=== PATIENT | male | born 1970 | race Hispanic/Latino ===

== ENCOUNTER 2019-10-10 07:36 | Day surgery (SDC) | payer OTHER, MEDICARE ==
[~2019-10-10] VITALS: Ht 182.9 cm; Wt 133.8 kg
[~2019-10-10 07:36] MED LIST: AMLO10TA7 PO; ASPI-556 PO; ATOR10TA69 PO; AURYXIA PO; CINA30TA5 PO; DOXA2TAB2 PO; FAMO20TA8 PO; LISI10TA7 PO; METO-391 PO; OMEG-167 PO; PATI16.8 PO; SEVE800T27 PO; SODIUM CHLORIDE 0.9% 1000ML 1,000 ML IV ONE
[2019-10-10 08:34] VITALS: BP 87/45
[2019-10-10 08:56] LABS: POTASSIUM 4.3 mmol/L (3.5-5.1)
--- NOTE | 2019-10-10 09:01 | NUR ---
SPOKE TO LORETO ALTAMIRANO CRNA ABOUT PT BP OF 81/46 AND RECHECK OF 87/45 , I ALSO MENTIONED TO HIM THAT PATIENT TOOK THREE BP MEDS LAST NIGHT AND ALSO PT REPORTED LOW BP IN DIALYSIS YESTERDAY. NO ORDERS AT THIS MOMENT.
[2019-10-10 09:10] LABS: CREATININE 9.9 mg/dL (0.5-1.5)
[2019-10-10] MEDS ORDERED: PROPOFOL 10 MG/ML 20ML VIAL IV ONE ×2 (09:18→09:39)
[2019-10-10] MEDS ORDERED: SODIUM CHLORIDE 0.9% 10 ML VIAL ONE (09:18)
[2019-10-10] MEDS ORDERED: PHENYLEPHRINE HCL 10 MG/ML 1ML VIAL IV ONE (09:19)
[2019-10-10 09:45] VITALS: BP 76/56
[2019-10-10 09:49] VITALS: BP 97/35
[2019-10-10 09:54] VITALS: BP 93/55
[2019-10-10 09:59] VITALS: BP 104/55
== END 2019-10-10 10:28 | disposition home or self-care (01) ==
LOC: DAH 07:36 → ENDO 07:36
PROVIDERS: ATTEND Internal Medicine
DX: K59.04 Chronic idiopathic constipation (principal); Z11.59 Encounter for screening for other viral diseases; D12.2 Benign neoplasm of ascending colon; D12.8 Benign neoplasm of rectum; K57.30 Diverticulosis of large intestine without perforation or abscess without bleeding; K64.0 First degree hemorrhoids; I12.0 Hypertensive chronic kidney disease with stage 5 chronic kidney disease or end stage renal disease; E11.22 Type 2 diabetes mellitus with diabetic chronic kidney disease; N18.6 End stage renal disease; F17.210 Nicotine dependence, cigarettes, uncomplicated; E03.9 Hypothyroidism, unspecified; E66.9 Obesity, unspecified; Z68.41 Body mass index [BMI] 40.0-44.9, adult; Z79.82 Long term (current) use of aspirin; Z79.899 Other long term (current) drug therapy; Z90.49 Acquired absence of other specified parts of digestive tract; Z98.890 Other specified postprocedural states; Z72.89 Other problems related to lifestyle; Z82.49 Family history of ischemic heart disease and other diseases of the circulatory system; Z83.3 Family history of diabetes mellitus
CPT/HCPCS: 36415 ×2; 45380; 45385; 80048; 87635; A4215; A4221; A4222; A4223; A4606; A4620; A4663; J2370; J2704 ×2; J7030; 43200

== ENCOUNTER 2021-06-18 06:43 | Observation (INO) | payer OTHER, MEDICARE ==
[2021-06-18] VITALS (40 sets, daily range): BP systolic 91–146; BP diastolic 45–100
[~2021-06-18] VITALS: Ht 182.9 cm; Wt 142.2 kg
[~2021-06-18 06:43] MED LIST changes: +AMLO-258 PO; -AMLO10TA7 PO; +LISI10TA24 PO; -LISI10TA7 PO; -SODIUM CHLORIDE 0.9% 1000ML 1,000 ML IV ONE
[2021-06-18] MEDS ORDERED: 0.9%NACL 1000ML 1,000 ML IV ONE (07:31)
[2021-06-18 07:32] LABS: BASOPHILS % (AUTO) 0.6 % (0.0-5.0); EOSINOPHILS % (AUTO) 0.9 % (0.0-8.0); HEMATOCRIT 34.4 % (42-54); LYMPHOCYTES % (AUTO) 16.3 % (21.0-51.0); MEAN CORPUSCULAR HGB CONC 31.4 g/dL (32.0-36.0); MEAN CORPUSCULAR VOLUME 102.1 fL (79-99); MONOCYTES % (AUTO) 9.2 % (3.0-13.0); NEUTROPHILS % (AUTO) 72.5 % (40.0-77.0); PLATELET COUNT (AUTO) 121 K/uL (130-400); RED BLOOD CELL COUNT(AUTO) 3.37 MIL/uL (4.50-6.20); RED CELL DISTRIBUTION WIDTH 14.6 % (11.0-15.5); WHITE BLOOD COUNT (AUTO) 7.9 K/uL (4.8-10.8)
[2021-06-18] MEDS ORDERED: LIDOCAINE HCL 2% VISCOUS 15 ML UDCUP ONE (07:32)
[2021-06-18] MEDS ORDERED: FENTANYL CITRATE PF 50 MCG/1 ML 2ML VIAL ONE (07:33)
[2021-06-18] MEDS ORDERED: MIDAZOLAM HCL 1 MG/ML 2ML VIAL ONE ×2 (07:33→12:00)
[2021-06-18 07:42] LABS: POTASSIUM 5.8 mmol/L (3.5-5.1)
[2021-06-18 07:43] LABS: INR 1.15 (0.85-1.15); PROTHROMBIN TIME 12.4 SEC (9.6-11.6)
[2021-06-18 07:44] LABS: PARTIAL THROMBOPLASTIN TIME 30.3 SEC (26.3-35.5)
[2021-06-18 07:45] LABS: CREATININE 11.4 mg/dL (0.5-1.5)
[2021-06-18] MEDS ORDERED: APIX5TAB PO (07:56)
[2021-06-18] MEDS ORDERED: CILO100T PO (07:56)
[2021-06-18] MEDS ORDERED: IBUP200C5 PO (07:56)
[2021-06-18] MEDS ORDERED: DOCU100T PO (07:56)
[2021-06-18] MEDS ORDERED: MEPERIDINE-PF 25 MG/ML SYG ONE (12:00)
[2021-06-18] MEDS ORDERED: HEPARIN 10,000 UNIT/10ML (1,000 UNIT/ML) VIAL ONE (12:00)
[2021-06-18] MEDS ORDERED: LIDOCAINE HCL 400MG/20ML VIAL ONE (12:01)
[2021-06-18] MEDS: SEVELAMER HCL 800 MG TABLET PO SCH (16:56)
[2021-06-18] MEDS: CILOSTAZOL 100 MG TAB PO SCH (20:51)
[2021-06-18] MEDS: APIXABAN 5 MG TABLET PO SCH (20:51)
[2021-06-18] MEDS ORDERED: METOPROLOL SUCCINATE 50 MG TAB.SR.24H PO SCH (21:00)
[2021-06-18] MEDS ORDERED: DOCUSATE SODIUM 100 MG CAP PO SCH (21:00)
[2021-06-18] MEDS ORDERED: DOXAZOSIN MESYLATE 2 MG TABLET PO SCH (21:00)
[2021-06-18] MEDS ORDERED: LISINOPRIL 10 MG TABLET PO SCH (21:00)
[2021-06-18] MEDS: AURYXIA 210 MG PO SCH (21:00)
[2021-06-18] MEDS: CINACALCET 30 MG TAB PO SCH (21:00)
[2021-06-18] MEDS ORDERED: ATORVASTATIN 10 MG TABLET PO SCH (21:00)
[2021-06-18] MEDS ORDERED: FAMOTIDINE 20MG TAB PO SCH (21:00)
[2021-06-19 00:32] VITALS: BP 133/89
[2021-06-19 04:18] LABS: POTASSIUM 4.5 mmol/L (3.5-5.1)
[2021-06-19 04:29] VITALS: BP 125/72
[2021-06-19 04:51] LABS: CREATININE 10.2 mg/dL (0.5-1.5)
[2021-06-19] MEDS: APIXABAN 5 MG TABLET PO SCH (07:21)
[2021-06-19] MEDS: SEVELAMER HCL 800 MG TABLET PO SCH ×2 (07:21→12:10)
[2021-06-19] MEDS: CILOSTAZOL 100 MG TAB PO SCH (07:22)
[2021-06-19] MEDS: AURYXIA 210 MG PO SCH ×2 (07:22→13:24)
[2021-06-19 08:07] VITALS: BP 119/73
[2021-06-19] MEDS: CINACALCET 30 MG TAB PO SCH (08:27)
[2021-06-19 12:00] VITALS: BP 122/62
== END 2021-06-19 15:05 | disposition home or self-care (01) ==
LOC: CLH 06:43 → DAH 06:43 → 2DH 06:44 → CLH 06:44
PROVIDERS: ADMIT Internal Medicine; ATTEND Internal Medicine
DX: I48.92 Unspecified atrial flutter (principal); I48.3 Typical atrial flutter; I25.10 Atherosclerotic heart disease of native coronary artery without angina pectoris; I12.0 Hypertensive chronic kidney disease with stage 5 chronic kidney disease or end stage renal disease; N18.6 End stage renal disease; E11.22 Type 2 diabetes mellitus with diabetic chronic kidney disease; J44.9 Chronic obstructive pulmonary disease, unspecified; E78.5 Hyperlipidemia, unspecified; E87.5 Hyperkalemia; E87.70 Fluid overload, unspecified; I34.0 Nonrheumatic mitral (valve) insufficiency; D64.9 Anemia, unspecified; D69.6 Thrombocytopenia, unspecified; Z99.2 Dependence on renal dialysis; Z79.899 Other long term (current) drug therapy; Z98.890 Other specified postprocedural states; Z79.82 Long term (current) use of aspirin
CPT/HCPCS: 36415 ×2; 80048 ×2; 85025; 85610; 85730; 93005; 93313; 93653; A4215; A4216; A4221; A4222; A4223 ×3; A4606; A4649 ×2; A4663; C1730; C1732; C1894 ×2; G0378 ×24; J1644 ×2; J2175; J2250 ×2; J3010; J3490; J7030; 90935; 99152; 99153; 99156; 99157

== ENCOUNTER 2023-03-24 08:51 | Observation (INO) | payer OTHER, MEDICARE ==
[2023-03-24] VITALS (19 sets, daily range): BP systolic 102–129; BP diastolic 54–87; PULSE 51–72; RESP 16–18; TEMP 98.2–98.8; O2SAT 98–99
[~2023-03-24] VITALS: Ht 182.9 cm; Wt 130.2 kg
[~2023-03-24 08:51] MED LIST changes: -AMLO-258 PO; +APIX5TAB PO; -ASPI-556 PO; +CILO100T3 PO; +DOCU100T PO; +IBUP200C5 PO; -PATI16.8 PO
[2023-03-24] MEDS ORDERED: AMIODARONE 900MG VIAL 900 MG in DEXTROSE 5%-WATER 500 ML IV SCH (10:30)
[2023-03-24] MEDS ORDERED: AMIODARONE 150MG VIAL 150 MG in DEXTROSE 5%-WATER 100 ML IV ONE (10:30)
[2023-03-24 11:52] LABS: BASOPHILS # (AUTO) 0.04 K/uL (0.00-0.20); BASOPHILS % (AUTO) 0.4 % (0.0-5.0); EOSINOPHILS # (AUTO) 0.09 K/uL (0.00-0.70); EOSINOPHILS % (AUTO) 0.9 % (0.0-8.0); HEMATOCRIT 46.4 % (42-54); IMMATURE GRANULOCYTE ABSOLUTE 0.05 K/uL (0-1); LYMPHOCYTES # (AUTO) 1.9 K/uL (1.0-4.8); LYMPHOCYTES % (AUTO) 19.2 % (21.0-51.0); MEAN CORPUSCULAR HEMOGLOBIN 30.6 pg (27.0-33.0); MEAN CORPUSCULAR HGB CONC 32.5 g/dL (32.0-36.0); MEAN CORPUSCULAR VOLUME 94.1 fL (79-99); MONOCYTES # (AUTO) 0.8 K/uL (0.1-1.0); MONOCYTES % (AUTO) 8.5 % (3.0-13.0); NEUTROPHILS # (AUTO) 6.8 K/uL (1.8-7.7); NEUTROPHILS % (AUTO) 70.5 % (40.0-77.0); PLATELET COUNT (AUTO) 159 K/uL (130-400); RED BLOOD CELL COUNT(AUTO) 4.93 MIL/uL (4.50-6.20); RED CELL DISTRIBUTION WIDTH 14.8 % (11.0-15.5); WHITE BLOOD COUNT (AUTO) 9.6 K/uL (4.8-10.8)
[2023-03-24 12:03] LABS: ALBUMIN 3.7 g/dL (3.5-5.0); BILIRUBIN,TOTAL 0.7 mg/dL (0.2-1.0); MAGNESIUM 2.6 mg/dL (1.80-2.40); POTASSIUM 4.9 mmol/L (3.5-5.1); THYROID STIMULATING HORMONE 1.83 uIU/mL (0.36-3.74); TOTAL PROTEIN, SERUM 8.6 g/dL (6.0-8.3)
[2023-03-24 12:28] LABS: CREATININE 12.1 mg/dL (0.5-1.5)
[2023-03-24] MEDS: AMIODARONE 540 MG/D5W 300ML (0.5MG/MIN) IV ONE ×4 (13:05→15:16)
[2023-03-24] MEDS ORDERED: AMIODARONE 900MG VIAL 360 MG in DEXTROSE 5%-WATER 200 ML IV SCH (14:00)
[2023-03-24] MEDS ORDERED: WARF4TAB8 PO (19:15)
[2023-03-24] MEDS ORDERED: FOLI1TAB85 PO (19:15)
[2023-03-24] MEDS ORDERED: CINA60TA4 PO (19:15)
[2023-03-24] MEDS ORDERED: SUCR500T PO (19:19)
[2023-03-24] MEDS ORDERED: ATORVASTATIN 10 MG TABLET PO SCH (21:00)
[2023-03-24] MEDS ORDERED: FAMOTIDINE 20MG TAB PO SCH (21:00)
[2023-03-24] MEDS ORDERED: CINACALCET 30 MG TAB PO SCH (21:00)
[2023-03-24] MEDS ORDERED: METOPROLOL SUCCINATE 50 MG TAB.SR.24H PO SCH (21:00)
[2023-03-24] MEDS ORDERED: DOCUSATE SODIUM 100 MG CAP PO SCH (21:00)
[2023-03-24] MEDS ORDERED: AMIODARONE 540 MG/D5W 300ML (0.5MG/MIN) IV SCH ×2 (22:00)
[2023-03-24] MEDS: SEVELAMER HCL 800 MG TABLET PO SCH (22:54)
[2023-03-24] MEDS: WARFARIN SODIUM 2 MG TAB PO SCH (22:56)
[2023-03-25] MEDS: WARFARIN SODIUM 2 MG TAB PO SCH (00:08)
[2023-03-25 00:14] LABS: INR 1.64 (0.85-1.15); PROTHROMBIN TIME 18.4 SEC (9.6-11.6)
[2023-03-25 03:46] VITALS: BP 119/66; PULSE 64; RESP 18
[2023-03-25] MEDS ORDERED: DEXTROSE 50%-WATER 50 ML DISP.SYRIN IV ONE (03:58)
[2023-03-25 04:02] LABS: BASOPHILS # (AUTO) 0.07 K/uL (0.00-0.20); BASOPHILS % (AUTO) 0.6 % (0.0-5.0); EOSINOPHILS # (AUTO) 0.13 K/uL (0.00-0.70); EOSINOPHILS % (AUTO) 1.1 % (0.0-8.0); HEMATOCRIT 45.6 % (42-54); IMMATURE GRANULOCYTE ABSOLUTE 0.06 K/uL (0-1); LYMPHOCYTES # (AUTO) 3.2 K/uL (1.0-4.8); LYMPHOCYTES % (AUTO) 25.5 % (21.0-51.0); MEAN CORPUSCULAR HEMOGLOBIN 31.4 pg (27.0-33.0); MEAN CORPUSCULAR HGB CONC 33.6 g/dL (32.0-36.0); MEAN CORPUSCULAR VOLUME 93.4 fL (79-99); MONOCYTES # (AUTO) 1.4 K/uL (0.1-1.0); MONOCYTES % (AUTO) 10.9 % (3.0-13.0); NEUTROPHILS # (AUTO) 7.6 K/uL (1.8-7.7); NEUTROPHILS % (AUTO) 61.4 % (40.0-77.0); PLATELET COUNT (AUTO) 161 K/uL (130-400); RED BLOOD CELL COUNT(AUTO) 4.88 MIL/uL (4.50-6.20); RED CELL DISTRIBUTION WIDTH 14.7 % (11.0-15.5); WHITE BLOOD COUNT (AUTO) 12.4 K/uL (4.8-10.8)
[2023-03-25 04:14] LABS: PHOSPHORUS 5.8 mg/dL (2.5-4.9); POTASSIUM 3.7 mmol/L (3.5-5.1)
[2023-03-25 04:29] LABS: CREATININE 9.9 mg/dL (0.5-1.5)
[2023-03-25 07:45] VITALS: BP 90/57; PULSE 74; RESP 18
[2023-03-25] MEDS: SEVELAMER HCL 800 MG TABLET PO SCH (08:18)
[2023-03-25] MEDS ORDERED: AMIODARONE 200 MG TABLET PO SCH (09:00)
[2023-03-25] MEDS ORDERED: Vitamin B Complex/Vit C/Folic Acid PO SCH (09:00)
[2023-03-25 09:15] VITALS: O2SAT 98
[2023-03-25] MEDS ORDERED: AMIO200T68 PO (10:29)
[2023-03-25 11:30] VITALS: BP 105/68; PULSE 66; RESP 18
[2023-03-25 18:13] LABS: HEPATITIS B CORE AB TOTAL Non-Reactive (Nonreactive); HEPATITIS B SURFACE ANTIBODY Positive (Reactive); HEPATITIS B SURFACE ANTIGEN Non-Reactive (Nonreactive)
== END 2023-03-25 12:50 | disposition home or self-care (01) ==
LOC: EDH 08:51 → DIRECT 08:52 → 2DH 16:01
PROVIDERS: ADMIT Internal Medicine Cardiovascular Disease; ATTEND Internal Medicine Cardiovascular Disease
DX: I48.19 Other persistent atrial fibrillation (principal); I12.0 Hypertensive chronic kidney disease with stage 5 chronic kidney disease or end stage renal disease; N18.6 End stage renal disease; E11.22 Type 2 diabetes mellitus with diabetic chronic kidney disease; D64.9 Anemia, unspecified; E11.51 Type 2 diabetes mellitus with diabetic peripheral angiopathy without gangrene; I25.10 Atherosclerotic heart disease of native coronary artery without angina pectoris; I05.0 Rheumatic mitral stenosis; E78.5 Hyperlipidemia, unspecified; Z79.01 Long term (current) use of anticoagulants; Z79.899 Other long term (current) drug therapy; Z86.73 Personal history of transient ischemic attack (TIA), and cerebral infarction without residual deficits; Z99.2 Dependence on renal dialysis; Z98.890 Other specified postprocedural states
CPT/HCPCS: 96376; 96365; 96366 ×2; 84443; 83735; 80053; 85025 ×2; 85610; 86706; 87340; 86704; 36415 ×2; 71045; 93005; 90935; 84100; 80048; 82948 ×3; G0378 ×23; J7060 ×3; J0282 ×3; J7070; G0257

== ENCOUNTER → 2023-03-30 | Outpatient (CLI) | payer OTHER, MEDICARE ==
[~2023-03-30] MED LIST changes: +AMIO200T68 PO; -APIX5TAB PO; +CINA60TA4 PO; +FOLI1TAB85 PO; +SUCR500T PO; +WARF4TAB8 PO
[2023-03-30 16:21] LABS: INR 1.62 (0.85-1.15); PROTHROMBIN TIME 18.2 SEC (9.6-11.6)
== END | disposition home or self-care (01) ==
LOC: LAB 11:39
PROVIDERS: ATTEND Internal Medicine Cardiovascular Disease
DX: I25.10 Atherosclerotic heart disease of native coronary artery without angina pectoris (principal)
CPT/HCPCS: 36415; 85610

== ENCOUNTER → 2023-04-13 | Outpatient (CLI) | payer OTHER, MEDICARE ==
[2023-04-13 12:36] LABS: INR 1.69 (0.85-1.15); PROTHROMBIN TIME 18.9 SEC (9.6-11.6)
== END | disposition home or self-care (01) ==
LOC: LAB 09:40
PROVIDERS: ATTEND Internal Medicine Cardiovascular Disease
DX: I48.11 Longstanding persistent atrial fibrillation (principal)
CPT/HCPCS: 36415; 85610

== ENCOUNTER → 2023-05-13 | Outpatient (CLI) | payer OTHER, MEDICARE ==
[2023-05-13 13:03] LABS: INR 1.91 (0.85-1.15); PROTHROMBIN TIME 21.2 SEC (9.6-11.6)
== END | disposition home or self-care (01) ==
LOC: LAB 11:26
PROVIDERS: ATTEND Internal Medicine Cardiovascular Disease
DX: I48.91 Unspecified atrial fibrillation (principal)
CPT/HCPCS: 36415; 85610

== ENCOUNTER → 2023-06-01 | Outpatient (CLI) | payer MEDICARE, OTHER ==
[2023-06-01 12:16] LABS: INR 1.22 (0.85-1.15)
== END | disposition home or self-care (01) ==
LOC: LAB 10:42
PROVIDERS: ATTEND Internal Medicine Cardiovascular Disease
DX: I48.3 Typical atrial flutter (principal)
CPT/HCPCS: 36415; 85610

== ENCOUNTER → 2023-08-23 | Outpatient (CLI) | payer MEDICARE, OTHER ==
[2023-08-23 12:25] LABS: INR 1.95 (0.85-1.15); PROTHROMBIN TIME 21.9 SEC (9.6-11.6)
[2023-08-23 12:27] LABS: PARTIAL THROMBOPLASTIN TIME 39.9 SEC (26.3-35.5)
== END | disposition home or self-care (01) ==
LOC: LAB 11:00
PROVIDERS: ATTEND Internal Medicine Cardiovascular Disease
DX: I48.91 Unspecified atrial fibrillation (principal)
CPT/HCPCS: 36415; 85610; 85730

== ENCOUNTER → 2023-09-16 | Outpatient (CLI) | payer MEDICARE, OTHER ==
[2023-09-16 16:31] LABS: INR 1.7 (0.85-1.15); PROTHROMBIN TIME 19.3 SEC (9.6-11.6)
[2023-09-16 16:32] LABS: PARTIAL THROMBOPLASTIN TIME 38.2 SEC (26.3-35.5)
== END | disposition home or self-care (01) ==
LOC: LAB 15:47
PROVIDERS: ATTEND Internal Medicine Cardiovascular Disease
DX: I48.91 Unspecified atrial fibrillation (principal)
CPT/HCPCS: 36415; 85610; 85730